=== PATIENT | female | born 1975 | race African-American/Black ===

== ENCOUNTER 2017-05-24 13:15 | Emergency (ER) | payer OTHER ==
[~2017-05-24] VITALS: Ht 170.2 cm; Wt 91.6 kg
[2017-05-24 13:29] VITALS: BP 142/86
--- NOTE | 2017-05-24 13:55 | NUR ---
PATIENT PRESENTS TO ED WITH repeated n/v x 3 days ----unable to tolerate any PO's f/c hx---recent admission for kidnes infection 3-4 wks ago at [facility]----none .DENIES DIARRHEA; SKIN IS PINK/WARM/DRY; AAOX4 WITH EVEN AND STEADY GAIT; LUNGS CLEAR BL; HR EVEN AND REGULAR; PT DENIES ANY FEVER, CP, SOB, OR COUGH AT THIS TIME; PATIENT STATES PAIN OF 0/10 AT THIS TIME; VSS; PATIENT POSITIONED FOR COMFORT; ER MD MADE AWARE OF PT STATUS.
[2017-05-24] MEDS ORDERED: NACL 0.9% 1,000 ML IV ONE (14:15)
[2017-05-24] MEDS ORDERED: ONDANSETRON 4 MG/2 ML VIAL IVP ONE (14:15)
--- NOTE | 2017-05-24 14:20 | NUR ---
PATIENT MOVED TO BED #10
[2017-05-24 14:56] LABS: BASOPHILS # (AUTO) 0.2 K/uL (0.00-0.22); BASOPHILS % (AUTO) 1.5 % (0.0-2.0); EOSINOPHILS # (AUTO) 0.1 K/uL (0-0.4); HEMATOCRIT 35.7 % (36-48); HEMOGLOBIN 12.1 g/dL (12.0-16.0); LYMPHOCYTES # (AUTO) 2.1 K/uL (2.5-16.5); LYMPHOCYTES % (AUTO) 20.8 % (20.5-51.1); MEAN CORPUSCULAR HEMOGLOBIN 30 pg (27-31); MEAN CORPUSCULAR HGB CONC 34 g/dL (33-37); MEAN CORPUSCULAR VOLUME 88 fL (80-94); MONOCYTES # (AUTO) 1.2 K/uL (0.8-1.0); MONOCYTES % (AUTO) 11.8 % (1.7-9.3); NEUTROPHILS # (AUTO) 6.6 K/uL (1.8-7.7); NEUTROPHILS % (AUTO) 64.9 % (42.2-75.2); PLATELET COUNT (AUTO) 258 K/uL (140-450); RED BLOOD CELL COUNT(AUTO) 4.04 MIL/uL (4.20-5.40); RED CELL DISTRIBUTION WIDTH 13.4 % (11.6-13.7); WHITE BLOOD COUNT (AUTO) 10.2 K/uL (4.8-10.8)
[2017-05-24 15:07] LABS: APPEARANCE,URINE SL CLOUDY (CLEAR); BILIRUBIN,URINE 1+ (NEGATIVE); BLOOD, URINE 2+ (NEGATIVE); COLOR,URINE YELLOW (YELLOW); LEUKOCYTE ESTERASE ,URINE 1+ (NEGATIVE); NITRITE, URINE NEGATIVE (NEGATIVE); UGLUCOSE NEGATIVE (NEGATIVE)
[2017-05-24 15:09] LABS: ANION GAP 16.4 (8-16); CARBON DIOXIDE 27.1 mmol/L (21-32); CREATININE 1.3 mg/dL (0.6-1.3); POTASSIUM 3.5 mmol/L (3.5-5.1)
[2017-05-24 15:15] LABS: ALBUMIN 3.4 g/dL (3.4-5.0); TOTAL BILIRUBIN 0.7 mg/dL (0.0-1.0)
[2017-05-24 16:15] LABS: RBC,URINE 11-20 (MOD) /HPF (0-5); WBC,URINE 20-60 /HPF (0-5)
[2017-05-24 16:43] VITALS: BP 119/60
--- NOTE | 2017-05-24 16:43 | NUR ---
Patient discharged with v/s stable. Written and verbal after care instructions given and explained. Patient alert, oriented and verbalized understanding of instructions. Ambulatory with steady gait. All questions addressed prior to discharge. ID band removed. Patient advised to follow up with PMD. Rx of KEFLEX AND ZOFRAN given. Patient educated on indication of medication including possible reaction and side effects. Opportunity to ask questions provided and answered.
== END 2017-05-24 16:43 | disposition home or self-care (01) ==
LOC: EDBD 13:15 → MED 13:15
DX: N39.0 Urinary tract infection, site not specified (principal); R11.2 Nausea with vomiting, unspecified; R03.0 Elevated blood-pressure reading, without diagnosis of hypertension; Z71.6 Tobacco abuse counseling
CPT/HCPCS: 36415; 80053; 81001; 81025; 83690; 85025; 87086; 87186; 96361; 96374; 99284; J2405; J7030

== ENCOUNTER 2017-06-30 18:50 | Emergency (ER) | payer OTHER ==
[~2017-06-30] VITALS: Ht 167.6 cm; Wt 95.3 kg
[2017-06-30 19:05] VITALS: BP 137/83
--- NOTE | 2017-06-30 19:50 | NUR ---
INFLUENZA AND STREP A SEN TO LAB
--- NOTE | 2017-06-30 20:52 | NUR ---
Pt presents to ED with generalized weakness, feeling ill with increased urinary frequency, and right side back pain x4 days. Pt A&Ox4, afebrile. Pt states no burning with urination or vaginal discharge. ER MD aware. VSS. Continue to monitor.
--- NOTE | 2017-06-30 20:54 | NUR ---
PATIENT AMBULATED TO ER CHAIR E
[2017-06-30 22:38] VITALS: BP 137/83
--- NOTE | 2017-06-30 22:39 | NUR ---
Patient discharged with v/s stable. Written and verbal after care instructions given and explained. Patient alert, oriented and verbalized understanding of instructions. Ambulatory with steady gait. All questions addressed prior to discharge. ID band removed. Patient advised to follow up with PMD. Rx of macrobid and motrin given. Patient educated on indication of medication including possible reaction and side effects. Opportunity to ask questions provided and answered.
== END 2017-06-30 22:39 | disposition home or self-care (01) ==
LOC: MED 18:50
DX: N39.0 Urinary tract infection, site not specified (principal)
CPT/HCPCS: 36415; 71045; 81002; 87081; 87804; 99285

== ENCOUNTER 2018-01-15 09:12 | Emergency (ER) | payer SELFPAY ==
[~2018-01-15] VITALS: Ht 167.6 cm; Wt 96.3 kg
[2018-01-15 09:17] VITALS: BP 124/75
--- NOTE | 2018-01-15 09:21 | NUR ---
Victorino gomez in ED - 01/15/18 at 0922 by [email or web address] PT AMBULATED TO ER BED 9
--- NOTE | 2018-01-15 09:22 | NUR ---
PT AMBULATED TO ER BED 9
--- NOTE | 2018-01-15 09:22 | NUR ---
42/F BIB WITH C/O INTERMITTENT FEVER, NAUSEA, CHILLS X 2 WKS, BACK PAIN YESTERDAY; TOOK TYLENOL LAST NIGHT; TEMP 98.4. HX; GALLBLADER REMOVE. SKIN IS PINK/WARM/DRY; AAOX4 WITH EVEN AND STEADY GAIT; LUNGS CLEAR BL; HR EVEN AND REGULAR; PT DENIES ANY FEVER, CP, SOB, OR COUGH AT THIS TIME; PATIENT STATES PAIN OF 0/10 AT THIS TIME; VSS; PATIENT POSITIONED FOR COMFORT; HOB ELEVATED; BEDRAILS UP X2; BED DOWN. ER MD MADE AWARE OF PT STATUS.
--- NOTE | 2018-01-15 09:59 | NUR ---
Patient being evaluated by DR LEIVA at bedside.
[2018-01-15] MEDS ORDERED: KETOROLAC 60 MG/2 ML VIAL IM ONE (10:00)
[2018-01-15 10:33] VITALS: BP 109/62
--- NOTE | 2018-01-15 10:33 | NUR ---
Patient discharged with v/s stable. Written and verbal after care instructions given and explained. Patient alert, oriented and verbalized understanding of instructions. Ambulatory with steady gait. All questions addressed prior to discharge. ID band removed. Patient advised to follow up with PMD. Rx of CIPRO& MOTRIN given. Patient educated on indication of medication including possible reaction and side effects. Opportunity to ask questions provided and answered.
== END 2018-01-15 10:33 | disposition home or self-care (01) ==
LOC: MED 09:12
DX: R51 Headache (principal); N39.0 Urinary tract infection, site not specified; F17.200 Nicotine dependence, unspecified, uncomplicated; Z90.49 Acquired absence of other specified parts of digestive tract
CPT/HCPCS: 81002; 81025; 96372; 99283; J1885

== ENCOUNTER 2021-02-28 12:02 | Emergency (ER) | payer MEDICAID ==
[~2021-02-28] VITALS: Ht 167.6 cm; Wt 106.6 kg
[2021-02-28 12:17] VITALS: BP 139/90
--- NOTE | 2021-02-28 12:44 | NUR ---
DR ARENAS AT BEDSIDE EVALUATING PT
--- NOTE | 2021-02-28 12:53 | NUR ---
45/F BIB SELF WITH C/O RIGHT FLANK PAIN RADIATING TO ABDOMEN X2 MONTHS. PATIENT STATES PAIN HAS BEEN INTERMITTENT BUT HAS BEEN WORSENING OVER THE LAST TWO DAYS, REPORTS TAKING ALEVE WITH MILD RELIEF. FLANK AND ABDOMEN IS NONTENDER TO TOUCH, PAIN IS UNPROVOKED, DENIES N/V/D, DYSURIA, CP, SOB, FEVER OR CHILLS. STATES SHE HAS BEEN EXPERIENCING URINARY URGENCY.
[2021-02-28 13:10] LABS: BASOPHILS # (AUTO) 0.1 K/uL (0.00-0.22); BASOPHILS % (AUTO) 0.8 % (0.0-2.0); EOSINOPHILS # (AUTO) 0.2 K/uL (0-0.4); EOSINOPHILS % (AUTO) 2.5 % (0.0-4.0); HEMATOCRIT 33.4 % (36-48); LYMPHOCYTES % (AUTO) 27.6 % (20.5-51.1); MEAN CORPUSCULAR HEMOGLOBIN 26 pg (27-31); MEAN CORPUSCULAR HGB CONC 33 g/dL (33-37); MEAN CORPUSCULAR VOLUME 79.8 fL (80-94); MONOCYTES # (AUTO) 0.6 K/uL (0.8-1.0); MONOCYTES % (AUTO) 8.1 % (1.7-9.3); NEUTROPHILS # (AUTO) 4.4 K/uL (1.8-7.7); PLATELET COUNT (AUTO) 360 K/uL (140-450); RED BLOOD CELL COUNT(AUTO) 4.18 MIL/uL (4.20-5.40); RED CELL DISTRIBUTION WIDTH 16.3 % (11.6-13.7); WHITE BLOOD COUNT (AUTO) 7.1 K/uL (4.8-10.8)
--- NOTE | 2021-02-28 13:26 | NUR ---
ULTRASOUND AT BEDSIDE
[2021-02-28 13:49] LABS: APPEARANCE,URINE HAZY (CLEAR); BILIRUBIN,URINE NEGATIVE (NEGATIVE); BLOOD, URINE 1+ (NEGATIVE); COLOR,URINE YELLOW (YELLOW); LEUKOCYTE ESTERASE ,URINE 3+ (NEGATIVE); UGLUCOSE NEGATIVE (NEGATIVE)
[2021-02-28 13:53] LABS: ALBUMIN 3.5 g/dL (3.4-5.0); ANION GAP 11.9 (8-16); CARBON DIOXIDE 25.8 mmol/L (21-32); CREATININE 1.1 mg/dL (0.6-1.3); POTASSIUM 3.7 mmol/L (3.5-5.1); TOTAL BILIRUBIN 0.3 mg/dL (0.0-1.0)
[2021-02-28 13:56] LABS: NITRITE, URINE POSITIVE (NEGATIVE)
[2021-02-28 13:59] LABS: WBC,URINE 80-100 /HPF (0-5)
[2021-02-28] MEDS ORDERED: cefTRIAXone 1,000 MG in LIDOCAINE MPF 1% 2.1 ML IM ONE (14:25)
[2021-02-28] MEDS ORDERED: LIDOCAINE MPF 1% 5 ML ONE (14:36)
[2021-02-28] MEDS ORDERED: cefTRIAXone 1,000 MG VIAL ONE (14:36)
[2021-02-28] MEDS ORDERED: CEPH-588 PO (15:05)
[2021-02-28 15:16] VITALS: BP 139/90
--- NOTE | 2021-02-28 15:17 | NUR ---
Patient discharged with v/s stable. Written and verbal after care instructions ABOUT PYELONEPHRITIS given and explained. Patient alert, oriented and verbalized understanding of instructions. Ambulatory with steady gait. All questions addressed prior to discharge. ID band removed. Patient advised to follow up with PMD. Rx of KEFLEX given. Patient educated on indication of medication including possible reaction and side effects. Opportunity to ask questions provided and answered.
== END 2021-02-28 15:17 | disposition home or self-care (01) ==
LOC: MED 12:02
DX: N12 Tubulo-interstitial nephritis, not specified as acute or chronic (principal); Z90.49 Acquired absence of other specified parts of digestive tract; Z79.899 Other long term (current) drug therapy
CPT/HCPCS: 36415; 76705; 80053; 81001; 81025; 83690; 85025; 87086; 96372; 99284; J0696; J2001; Q0092

== ENCOUNTER 2021-05-07 13:59 | Emergency (ER) | payer SELFPAY ==
[~2021-05-07] VITALS: Ht 167.6 cm; Wt 95.3 kg
[~2021-05-07 13:59] MED LIST: CEPH-588 PO
[2021-05-07 15:39] VITALS: BP 139/106
--- NOTE | 2021-05-07 15:45 | NUR ---
STACIA. HANDED ON URINE CUP.
[2021-05-07] MEDS ORDERED: CEPH250C16 PO (16:47)
[2021-05-07] MEDS ORDERED: IBUP-2213 PO (16:47)
[2021-05-07 16:51] LABS: BASOPHILS # (AUTO) 0.1 K/uL (0.00-0.22); BASOPHILS % (AUTO) 0.8 % (0.0-2.0); EOSINOPHILS # (AUTO) 0.2 K/uL (0-0.4); EOSINOPHILS % (AUTO) 2.3 % (0.0-4.0); HEMATOCRIT 33.1 % (36-48); HEMOGLOBIN 10.8 g/dL (12.0-16.0); LYMPHOCYTES # (AUTO) 2.5 K/uL (2.5-16.5); LYMPHOCYTES % (AUTO) 37.1 % (20.5-51.1); MEAN CORPUSCULAR HEMOGLOBIN 25 pg (27-31); MEAN CORPUSCULAR HGB CONC 33 g/dL (33-37); MONOCYTES # (AUTO) 0.4 K/uL (0.8-1.0); NEUTROPHILS # (AUTO) 3.6 K/uL (1.8-7.7); NEUTROPHILS % (AUTO) 53.8 % (42.2-75.2); PLATELET COUNT (AUTO) 393 K/uL (140-450); WHITE BLOOD COUNT (AUTO) 6.7 K/uL (4.8-10.8)
[2021-05-07 16:55] LABS: BILIRUBIN,URINE NEGATIVE (NEGATIVE); BLOOD, URINE 1+ (NEGATIVE); COLOR,URINE YELLOW (YELLOW); LEUKOCYTE ESTERASE ,URINE 2+ (NEGATIVE); NITRITE, URINE POSITIVE (NEGATIVE); UGLUCOSE NEGATIVE (NEGATIVE)
[2021-05-07 16:56] LABS: APPEARANCE,URINE HAZY (CLEAR)
--- NOTE | 2021-05-07 17:00 | NUR ---
45/F BIB SELF WITH C/O RIGHT FLANK AND ABDOMINAL PAIN SINCE LAST NIGHT, WORSENING TODAY. REPORTS 8/10 CONSTANT SHARP PAIN. PATIENT DENIES FEVERS, N/V/D OR CP. PATIENT REPORTS BEING SEEN TWO MONTHS AGO FOR SAME SYMPTOMS AND RECEIVING DX OF PYELONEPHROSIS.
[2021-05-07 17:47] LABS: ANION GAP 12.3 (8-16); CARBON DIOXIDE 26.2 mmol/L (21-32); CREATININE 0.8 mg/dL (0.6-1.3); POTASSIUM 3.5 mmol/L (3.5-5.1)
[2021-05-07 17:54] VITALS: BP 139/106
--- NOTE | 2021-05-07 17:54 | NUR ---
Patient discharged with v/s stable. Written and verbal after care instructions ABOUT URINARY TRACT INFECTION given and explained. Patient alert, oriented and verbalized understanding of instructions. Ambulatory with steady gait. All questions addressed prior to discharge. ID band removed. Patient advised to follow up with PMD. Rx of KEFLEX AND IBURPOFEN given. Patient educated on indication of medication including possible reaction and side effects. Opportunity to ask questions provided and answered.
[2021-05-07 17:55] LABS: ALBUMIN 3.6 g/dL (3.4-5.0); TOTAL BILIRUBIN 0.3 mg/dL (0.0-1.0)
[2021-05-07 18:12] LABS: WBC,URINE TOO MANY TO COUNT /HPF (0-5)
== END 2021-05-07 17:54 | disposition home or self-care (01) ==
LOC: MED 13:59
DX: N13.2 Hydronephrosis with renal and ureteral calculous obstruction (principal); E11.9 Type 2 diabetes mellitus without complications
CPT/HCPCS: 36415; 80053; 81001; 81025; 83690; 85025; 87086; 99284